=== PATIENT | male | born 1950 | race Caucasian/White ===

== ENCOUNTER 2018-01-31 07:48 | Emergency (ER) | END 2018-01-31 08:22 | disposition home or self-care (01) | DX: J40 Bronchitis, not specified as acute or chronic (principal); J30.2 Other seasonal allergic rhinitis; E07.9 Disorder of thyroid, unspecified; E78.00 Pure hypercholesterolemia, unspecified; M10.9 Gout, unspecified; Z85.89 Personal history of malignant neoplasm of other organs and systems ==